=== PATIENT | male | born 1960 | race Caucasian/White ===

== ENCOUNTER → 2024-06-09 07:48 | Outpatient (REF) | payer MEDICARE, OTHER, SELFPAY | LOC: RAD 07:48 | PROVIDERS: ATTENDING PHYSICIAN Internal Medicine; FAMILY PHYSICIAN Family Medicine | DX: M35.9 Systemic involvement of connective tissue, unspecified (principal) | CPT/HCPCS: 71046 ==

== ENCOUNTER 2024-06-22 14:52 | Outpatient (RCR) | payer MEDICARE, OTHER, SELFPAY | END 2024-06-22 23:59 | disposition home or self-care (01) | LOC: RPT 14:52 | PROVIDERS: ATTENDING PHYSICIAN Internal Medicine; FAMILY PHYSICIAN Family Medicine | DX: M70.62 Trochanteric bursitis, left hip (principal); Z73.6 Limitation of activities due to disability; M62.81 Muscle weakness (generalized); M35.3 Polymyalgia rheumatica | CPT/HCPCS: 97110; 97162; 97530 ==

== ENCOUNTER 2024-07-20 15:05 | Outpatient (RCR) | payer MEDICARE, OTHER, SELFPAY | END 2024-07-20 23:59 | disposition home or self-care (01) | LOC: RPT 15:05 | PROVIDERS: ATTENDING PHYSICIAN Internal Medicine; FAMILY PHYSICIAN Family Medicine | DX: M70.62 Trochanteric bursitis, left hip (principal); Z73.6 Limitation of activities due to disability; M62.81 Muscle weakness (generalized); M35.3 Polymyalgia rheumatica | CPT/HCPCS: 97110; 97140; 97530 ==

== ENCOUNTER 2024-08-16 13:56 | Outpatient (RCR) | payer MEDICARE, OTHER, SELFPAY | END 2024-08-17 06:06 | disposition home or self-care (01) | LOC: RPT 13:56 | PROVIDERS: ATTENDING PHYSICIAN Internal Medicine; FAMILY PHYSICIAN Family Medicine | DX: M70.62 Trochanteric bursitis, left hip (principal); Z73.6 Limitation of activities due to disability; M62.81 Muscle weakness (generalized); M35.3 Polymyalgia rheumatica | CPT/HCPCS: 97110; 97112; 97530 ==

== ENCOUNTER → 2024-09-29 12:28 | Outpatient (REF) | payer MEDICARE, OTHER, SELFPAY | LOC: PAVMRI 12:28 | PROVIDERS: ATTENDING PHYSICIAN Family Medicine | DX: M25.552 Pain in left hip (principal) | CPT/HCPCS: 73721 ==

== ENCOUNTER 2025-03-15 14:03 | Outpatient (RCR) | payer MEDICARE, OTHER, SELFPAY | END 2025-03-15 23:59 | disposition home or self-care (01) | LOC: RPT 14:03 | PROVIDERS: ATTENDING PHYSICIAN Physician Assistant Surgical; FAMILY PHYSICIAN Family Medicine | DX: M84.350D Stress fracture, pelvis, subsequent encounter for fracture with routine healing (principal); Z73.6 Limitation of activities due to disability; R26.2 Difficulty in walking, not elsewhere classified; M62.81 Muscle weakness (generalized) | CPT/HCPCS: 97010; 97110; 97112; 97140; 97162 ==

== ENCOUNTER → 2025-03-17 07:44 | Outpatient (REF) | payer MEDICARE, OTHER, SELFPAY | LOC: PAVMRI 07:44 | PROVIDERS: ATTENDING PHYSICIAN Family Medicine | DX: M25.552 Pain in left hip (principal); M54.16 Radiculopathy, lumbar region | CPT/HCPCS: 72148; 73721 ==

== ENCOUNTER 2025-03-27 06:18 | Day surgery (SDC) | payer MEDICARE, OTHER, SELFPAY | END 2025-03-27 14:21 | disposition home or self-care (01) | LOC: GI 06:18 | PROVIDERS: ATTENDING PHYSICIAN Specialist; FAMILY PHYSICIAN Family Medicine | DX: Z12.11 Encounter for screening for malignant neoplasm of colon (principal); D12.0 Benign neoplasm of cecum; D12.3 Benign neoplasm of transverse colon; K57.30 Diverticulosis of large intestine without perforation or abscess without bleeding; D64.9 Anemia, unspecified; K22.70 Barrett's esophagus without dysplasia; K22.89 Other specified disease of esophagus; K31.89 Other diseases of stomach and duodenum; Z86.0101 Personal history of adenomatous and serrated colon polyps; Z13.810 Encounter for screening for upper gastrointestinal disorder; Z87.19 Personal history of other diseases of the digestive system | CPT/HCPCS: 45380; 43239; 88305; 88342 ==

== ENCOUNTER 2025-04-20 07:16 | Outpatient (RCR) | payer MEDICARE, OTHER, SELFPAY | END 2025-04-20 23:59 | disposition home or self-care (01) | LOC: RPT 07:16 | PROVIDERS: ATTENDING PHYSICIAN Physician Assistant Surgical; FAMILY PHYSICIAN Family Medicine | DX: M84.350D Stress fracture, pelvis, subsequent encounter for fracture with routine healing (principal); Z73.6 Limitation of activities due to disability; R26.2 Difficulty in walking, not elsewhere classified; M62.81 Muscle weakness (generalized) | CPT/HCPCS: 97110; 97112 ==